=== PATIENT | female | born 1945 | race American Indian/Alaskan Native ===

== ENCOUNTER 2020-03-04 14:19 | Inpatient (IN) | payer MEDICARE ==
[2020-03-04] MEDS ORDERED: ACETAMINOPHEN 500 MG TAB PO STA (14:56)
[2020-03-04] MEDS ORDERED: SODIUM CHLORIDE 0.9% 500 ML 500 ML IV ONE (14:56)
--- NOTE | 2020-03-04 15:33 | XRay Report ---
XR chest 1V ap INDICATION / CLINICAL INFORMATION: CANDY COVID +. COMPARISON: None FINDINGS: SUPPORT DEVICES: None. HEART /PULMONARY VASCULATURE: No significant abnormality. LUNGS / PLEURA: Bilateral airspace opacities are present. No sizable pleural effusion. No pneumothora x. ADDITIONAL FINDINGS: No significant additional findings. IMPRESSION: Bilateral airspace disease, compatible with pneumonia. Findings are in keeping with reported history of COVID. Signer Name: Wes Deleon MD Signed: 03/04/2020 3:28 PM Workstation Name: [id number]
[2020-03-04 15:54] LABS: Basophils % (Auto) 0.4 % (0.0-1.8); Hematocrit 35.1 % (30.3-42.9); Hemoglobin 11.7 gm/dl (10.1-14.3); Lymphocytes # (Auto) 0.6 K/mm3 (1.2-5.4); Lymphocytes % (Auto) 11.1 % (13.4-35.0); Mean Corpuscular HGB Conc 34 % (30-34); Mean Corpuscular Volume 89 fl (79-97); Monocytes # (Auto) 0.3 K/mm3 (0.0-0.8); Monocytes % (Auto) 5.7 % (0.0-7.3); Platelet Count 169 K/mm3 (140-440); Red Blood Count 3.94 M/mm3 (3.65-5.03); Red Cell Distribution Width 14.9 % (13.2-15.2)
[2020-03-04 16:00] LABS: INR 1.06 (0.87-1.13)
[2020-03-04 16:01] LABS: Partial Thromboplastin Time 32.1 Sec. (24.2-36.6)
[2020-03-04 16:12] LABS: Alanine Aminotransferase 26 units/L (7-56); Albumin 3.3 g/dL (3.9-5); BUN/Creatinine Ratio 14; Blood Urea Nitrogen 17 mg/dL (7-17); Calcium 8.6 mg/dL (8.4-10.2); Hemolysis Index 4
[2020-03-04 16:13] LABS: Bilirubin,Direct < 0.2 mg/dL (0-0.2); C-Reactive Protein 11.3 mg/dL (0.00-1.30)
--- NOTE | 2020-03-04 16:23 | History and Physical Report ---
History of Present Illness Chief complaint: It is so hard for me to breathe History of present illness: 74 YO Female with Obesity Hypoventilation Syndrome, DM, HTN, Asthma presents to ED for evaluation. Patient states that she has experienced shortness of breath over the past 2 days with worsening symptoms over the past 1 day. Patient acknowledges fever to 103 F, malaise, weakness, fatigue, decreased exercise yobany erance. EMS was notified and upon arrival the patient was found to be in distress and subsequently transported to [facility] for further care and evaluation. Patient seen and evaluated in the emergency department. All lab and imaging studies reviewed. Patient was found to have a pulse oximetry of 86% on room air which is consistent with acute hypoxemic respiratory failure. The patient was nonresponsive to supplemental oxygen and was subsequently placed on high flow submental oxygen with improvement in pulse oximetry. Patient also found to have a chest x-ray which revealed bilateral pneumonia. Patient admitted to medical floor and initiated on pneumonia protocol as well as coronavirus protocol. Patient denies fever. Patient denies chills, chest pain, palpitations, skin rash, recent ill contacts. Patient acknowledges positive coronavirus test on 03/02/2020. No prior admission for review. No medication listed at time of admission for reconciliation. Advanced care planning conducted in the emergency department. Past History Past Medical History: diabetes, hypertension, other (See HPI) Past Surgical History: Other (Breast surgery) Social history: . denies: smoking, alcohol abuse Family history: diabetes, hypertension Medications and Allergies Allergies Allergy/AdvReac Type Severity Reaction Status Date / Time No Known Allergies Allergy Unverified 03/04/20 14:47 Review of Systems Constitutional: fever, fatigue, weakness, malaise Ears, nose, mouth and throat: no ear pain, no ear discharge, no tinnitis, no decreased hearing, no nose pain Breasts: no change in shape, no swelling Cardiovascular: no chest pain, no palpitations, no rapid/irregular heart beat, no edema, no syncope Respiratory: cough, shortness of breath, no hemoptysis, no pleurisy, no pain Gastrointestinal: no nausea, no vomiting, no diarrhea, no constipation Genitourinary Female: no pelvic pain, no flank pain, no dysuria, no urinary frequency, no urgency Rectal: no pain, no incontinence, no bleeding Musculoskeletal: no neck stiffness, no neck pain, no shooting arm pain, no arm numbness/tingling, no low back pain, no shooting leg pain Integumentary: no rash, no pruritis, no redness, no sores, no wounds Neurological: no transient paralysis, no paralysis, no weakness, no parathesias, no numbness Psychiatric: no anxiety, no memory loss, no change in sleep habits, no insomnia, no change in appetite, no change in libido, no suicidal ideation Endocrine: no cold intolerance, no heat intolerance, no polyphagia, no polydipsia, no polyuria, no excessive sweating, no low blood sugars, no fatigue Hematologic/Lymphatic: no easy bruising, no easy bleeding, no lymphadenopathy Allergic/Immunologic: no urticaria, no allergic rhinitis, no wheezing, no anaphylaxis Exam - Constitutional Vitals: Temp Pulse Resp BP Pulse Ox 103.1 F H 95 H 18 165/75 95 03/04/20 14:36 03/04/20 14:36 03/04/20 14:36 03/04/20 14:36 03/04/20 15:55 General appearance: Present: mild distress - EENT Eyes: Present: PERRL ENT: hearing intact, clear oral mucosa - Neck Neck: Present: supple, normal ROM - Respiratory Respiratory effort: labored, accessory muscle use, stridor Respiratory: bilateral: diminished, rhonchi - Cardiovascular Heart Sounds: Present: S1 & S2. Absent: rub, click - Extremities Extremities: pulses symmetrical, No edema Peripheral Pulses: within normal limits - Abdominal General gastrointestinal: Present: soft, non-tender, non-distended, normal bowel sounds Female genitourinary: Present: normal - Integumentary Integumentary: Present: clear, warm, dry - Musculoskeletal Musculoskeletal: gait normal, strength equal bilaterally - Psychiatric Psychiatric: appropriate mood/affect, intact judgment & insight - Neurologic Neurologic: CNII-XII intact, moves all extremities Results - Labs CBC & Chem 7: 03/04/20 15:07 03/04/20 15:07 Labs: Abnormal lab results 03/04/20 03/04/20 03/04/20 Range/Units 15:07 15:07 15:07 Lymph % (Auto) 11.1 L (13.4-35.0) % Lymph # (Auto) 0.6 L (1.2-5.4) K/mm3 Seg Neutrophils % 82.8 H (40.0-70.0) % D-Dimer 847.96 H (0-234) ng/mlDDU VBG pH 7.422 H (7.320-7.420) Sodium (137-145) mmol/L Glucose (65-100) mg/dL Ferritin (10.0-200.0) ng/mL AST (5-40) units/L Lactate Dehydrogenase (91-180) units/L C-Reactive Protein (0.00-1.30) mg/dL Albumin (3.9-5) g/dL 03/04/20 03/04/20 03/04/20 Range/Units 15:07 15:07 15:07 Lymph % (Auto) (13.4-35.0) % Lymph # (Auto) (1.2-5.4) K/mm3 Seg Neutrophils % (40.0-70.0) % D-Dimer (0-234) ng/mlDDU VBG pH (7.320-7.420) Sodium 134 L (137-145) mmol/L Glucose 208 H 206 H (65-100) mg/dL Ferritin 491.7 H (10.0-200.0) ng/mL AST 43 H (5-40) units/L Lactate Dehydrogenase 418 H 419 H (91-180) units/L C-Reactive Protein 11.90 H 11.30 H (0.00-1.30) mg/dL Albumin 3.3 L (3.9-5) g/dL Assessment and Plan - Patient Problems (1) Acute hypoxemic respiratory failure Current Visit: Yes Status: Acute Plan to address problem: Chest x-ray, CBC, pulse oximetry, nebulizer therapy, noninvasive positive pressure ventilation as clinically indicated. High flow submental oxygen at this time. Pulmonary toilet. Prone positioning while in bed. (2) COVID-19 virus infection Current Visit: Yes Status: Acute Plan to address problem: Coronavirus protocol: Isolation precautions, contact precautions, pulse oximetry, nebulizer therapy, IV antibiotic therapy, IV steroid therapy, prone positioning while in bed (3) Hypertension Current Visit: Yes Status: Acute Qualifiers: Hypertension type: essential hypertension Qualified Code(s): I10 - Essential (primary) hypertension Plan to address problem: Monitor blood pressure every shift, continue medical management (4) Obesity hypoventilation syndrome Current Visit: Yes Status: Acute Plan to address problem: Supplemental oxygen, pulse oximetry, outpatient pulmonary follow-up for sleep study, noninvasive positive pressure ventilation as clinically indicated. (5) Diabetes Current Visit: Yes Status: Acute Plan to address problem: Sliding scale insulin therapy, Accu-Chek, hypoglycemia protocol (6) Bilateral pneumonia Current Visit: Yes Status: Acute Qualifiers: Pneumonia type: due to unspecified organism Lung location: unspecified part of lung Qualified Code(s): J18.9 - Pneumonia, unspecified organism Plan to address problem: Pneumonia protocol: Chest x-ray, CBC, IV antibiotic therapy, nebulizer therapy, pulse oximetry, blood cultures. (7) DVT prophylaxis Current Visit: Yes Status: Acute Plan to address problem: SCD to bilateral lower extremities while in bed, prophylactic anticoagulation (8) Advance care planning Current Visit: Yes Status: Acute Plan to address problem: Disease education conducted, patient is full code, prognosis discussed, care plan discussed, patient acknowledges understanding and agreement with care plan, +30 minutes.
[2020-03-04] MEDS ORDERED: ONDANSETRON 4 MG/2 ML INJ IV PRN (16:24)
[2020-03-04] MEDS ORDERED: ACETAMINOPHEN 325 MG TAB PO PRN (16:24)
--- NOTE | 2020-03-04 17:11 | Emergency Department Report ---
ED General Adult HPI - General Chief complaint: Dyspnea/Respdistress Stated complaint: FEVER/SOB Time Seen by Provider: 03/04/20 14:55 Source: EMS Mode of arrival: Stretcher Limitations: No Limitations - History of Present Illness Initial comments: Is a 74-year old female who tested positive for Covid 19 on Thursday. The patient is not able to give me much of a history. She is noted to have a pulse oximetry of 94% on nasal cannula. I ordered high flow O2. Apparently, she has had a fever, 103 at triage. She has been short of breath. She complained of chest pain but not actively at the time of my encounter. -: Gradual, days(s) Location: chest Severity scale (0 -10): 0 Quality: other (Unable to describe) Consistency: other (Not currently active) Improves with: none Worsens with: none Associated Symptoms: denies other symptoms (Denies significant cough), shortness of breath - Related Data Allergies Allergy/AdvReac Type Severity Reaction Status Date / Time No Known Allergies Allergy Unverified 03/04/20 14:47 ED Review of Systems ROS: Stated complaint: FEVER/SOB Other details as noted in HPI Comment: Unobtainable due to pts medical conditions (Poorly able to communicate) ED Past Medical Hx - Past Medical History Hx Hypertension: Yes Hx Diabetes: Yes Hx Asthma: Yes - Surgical History Past Surgical History?: Yes Hx Breast Surgery: Yes (RIGHT) - Social History Smoking Status: Never Smoker Substance Use Type: None ED Physical Exam - General Limitations: Altered Mental Status, Physical Limitation General appearance: lethargic - Head Head exam: Present: atraumatic, normocephalic - Eye Eye exam: Present: normal appearance. Absent: scleral icterus - ENT ENT exam: Present: mucous membranes moist - Neck Neck exam: Present: normal inspection - Respiratory Respiratory exam: Present: rhonchi. Absent: normal lung sounds bilaterally, respiratory distress - Cardiovascular Cardiovascular Exam: Present: regular rate, normal rhythm. Absent: systolic murmur, diastolic murmur, rubs, gallop - GI/Abdominal GI/Abdominal exam: Present: soft, normal bowel sounds. Absent: distended, tenderness, guarding - Extremities Exam Extremities exam: Present: normal inspection - Back Exam Back exam: Present: normal inspection - Neurological Exam Neurological exam: Present: altered, CN II-XII intact (As testable). Absent: motor sensory deficit (No gross focal findings) - Psychiatric Psychiatric exam: Present: normal mood, flat affect - Skin Skin exam: Present: warm, dry, intact, normal color. Absent: rash ED Course Vital Signs 03/04/20 03/04/20 14:36 15:55 Temperature 103.1 F H Pulse Rate 95 H Respiratory 18 Rate Blood Pressure 165/75 O2 Sat by Pulse 92 95 Oximetry - Reevaluation(s) Reevaluation #1: Chest x-ray shows bilateral infiltrates consistent with pneumonia/COVID-19 infection. He is given a fluid bolus. She is placed on high flow O2. Antibiotics and steroids are ordered by the hospitalist Dr. Eduardo who was admitted the patient to his service. 03/04/20 17:10 ED Medical Decision Making - Lab Data Result diagrams: 03/04/20 15:07 03/04/20 15:07 Laboratory Results - last 24 hr 03/04/20 03/04/20 03/04/20 15:07 15:07 15:07 WBC 5.8 RBC 3.94 Hgb 11.7 Hct 35.1 MCV 89 MCH 30 MCHC 34 RDW 14.9 Plt Count 169 Lymph % (Auto) 11.1 L [place] % (Auto) 5.7 Eos % (Auto) 0.0 Baso % (Auto) 0.4 Lymph # (Auto) 0.6 L [place] # (Auto) 0.3 Eos # (Auto) 0.0 Baso # (Auto) 0.0 Seg Neutrophils % 82.8 H Seg Neutrophils # 4.8 PT 13.6 INR 1.06 APTT 32.1 D-Dimer 847.96 H VBG pH Sodium Potassium Chloride Carbon Dioxide Anion Gap BUN Creatinine Estimated GFR BUN/Creatinine Ratio Glucose Lactic Acid 1.20 Calcium Magnesium Ferritin Total Bilirubin Direct Bilirubin Indirect Bilirubin AST ALT Alkaline Phosphatase Lactate Dehydrogenase C-Reactive Protein NT-Pro-B Natriuret Pep Total Protein Albumin Albumin/Globulin Ratio 03/04/20 03/04/20 03/04/20 15:07 15:07 15:07 WBC RBC Hgb Hct MCV MCH MCHC RDW Plt Count Lymph % (Auto) [place] % (Auto) Eos % (Auto) Baso % (Auto) Lymph # (Auto) [place] # (Auto) Eos # (Auto) Baso # (Auto) Seg Neutrophils % Seg Neutrophils # PT INR APTT D-Dimer VBG pH 7.422 H Sodium 134 L Potassium 4.1 Chloride 101.6 Carbon Dioxide 24 Anion Gap 13 BUN 17 Creatinine 1.2 Estimated GFR 53 BUN/Creatinine Ratio 14 Glucose 208 H Lactic Acid Calcium 8.6 Magnesium 2.10 Ferritin 491.7 H Total Bilirubin 0.30 Direct Bilirubin < 0.2 Indirect Bilirubin 0.1 AST 43 H ALT 26 Alkaline Phosphatase 80 Lactate Dehydrogenase 418 H C-Reactive Protein 11.90 H NT-Pro-B Natriuret Pep 591.5 Total Protein 7.7 Albumin 3.3 L Albumin/Globulin Ratio 0.8 03/04/20 15:07 WBC RBC Hgb Hct MCV MCH MCHC RDW Plt Count Lymph % (Auto) [place] % (Auto) Eos % (Auto) Baso % (Auto) Lymph # (Auto) [place] # (Auto) Eos # (Auto) Baso # (Auto) Seg Neutrophils % Seg Neutrophils # PT INR APTT D-Dimer VBG pH Sodium Potassium Chloride Carbon Dioxide Anion Gap BUN Creatinine Estimated GFR BUN/Creatinine Ratio Glucose 206 H Lactic Acid Calcium Magnesium Ferritin Total Bilirubin Direct Bilirubin Indirect Bilirubin AST ALT Alkaline Phosphatase Lactate Dehydrogenase 419 H C-Reactive Protein 11.30 H NT-Pro-B Natriuret Pep Total Protein Albumin Albumin/Globulin Ratio - EKG Data -: EKG Interpreted by Tn EKG shows normal: sinus rhythm, axis, intervals, QRS complexes, ST-T waves Rate: normal - EKG Data Interpretation: other (Left atrial enlargement) - Radiology Data Radiology results: report reviewed, image reviewed Critical care attestation.: If time is entered above; I have spent that time in minutes in the direct care of this critically ill patient, excluding procedure time. ED Disposition Clinical Impression: COVID-19 virus infection, Hypoxia Bilateral pneumonia Qualifiers: Pneumonia type: due to unspecified organism Lung location: unspecified part of lung Qualified Code(s): J18.9 - Pneumonia, unspecified organism Disposition: -09 OP ADMIT IP TO THIS HOSP Is pt being admited?: Yes Does the pt Need Aspirin: Yes Condition: Stable Instructions: Bacterial Pneumonia (ED) Time of Disposition: 17:12
[2020-03-04] MEDS ORDERED: ASPIRIN 325 MG TAB PO ONE (17:12)
[2020-03-04] MEDS: methylPREDNISolone Sod Succinate 40 MG/1 ML INJ IV SCH (18:23)
[2020-03-04] MEDS: cefTRIAXone/NS 2 GM/100 ML 2 GM/100 ML BAG IV SCH (18:32)
[2020-03-04] MEDS: AZITHROMYCIN 500 MG in SODIUM CHLORIDE 0.9% 250ML 250 ML IV SCH (19:00)
[2020-03-04] MEDS: HEPARIN 5,000 UNIT/1 ML VIAL SUB-Q SCH (22:11)
[2020-03-05] MEDS: methylPREDNISolone Sod Succinate 40 MG/1 ML INJ IV SCH ×3 (00:32→17:21)
[2020-03-05] MEDS: HEPARIN 5,000 UNIT/1 ML VIAL SUB-Q SCH ×2 (10:15→21:09)
[2020-03-05] MEDS: cefTRIAXone/NS 2 GM/100 ML 2 GM/100 ML BAG IV SCH (17:21)
--- NOTE | 2020-03-05 18:02 | Progress Note ---
Assessment and Plan Assessment and plan: --COVID-19 virus infection/COVID-19 positive Current Visit: Yes Status: Acute Plan to address problem: Contact and droplet isolation Management per COVID-19 protocols IV steroids -- Acute hypoxemic respiratory failure Current Visit: Yes Status: Acute Plan to address problem: Oxygen titrate O2 sats to more than 90%, Prone position while resting Home oxygen evaluation at discharge --Hypertension Current Visit: Yes Status: Acute Plan to address problem: Monitor blood pressure every shift, continue medical management -- Obesity hypoventilation syndrome Current Visit: Yes Status: Acute Plan to address problem: Supplemental oxygen, pulse oximetry, outpatient pulmonary follow-up for sleep study, noninvasive positive pressure ventilation as clinically indicated. -- Diabetes Current Visit: Yes Status: Acute Plan to address problem: Sliding scale insulin therapy, Accu-Chek, hypoglycemia protocol --Bilateral pneumonia Current Visit: Yes Status: Acute Plan to address problem: Pneumonia protocol: Chest x-ray, CBC, IV antibiotic therapy, nebulizer therapy, pulse oximetry, blood cultures. -- DVT prophylaxis Current Visit: Yes Status: Acute Plan to address problem: SCD to bilateral lower extremities while in bed, prophylactic anticoagulation -- Advance care planning Current Visit: Yes Status: Acute Plan to address problem: Disease education conducted, patient is full code, prognosis discussed, care plan discussed, patient acknowledges understanding and agreement with care plan, +30 minutes. History Interval history: I have seen and examined the patient at the bedside this afternoon Patient's chart and medications reviewed Covid positive patient on isolation Vital signs noted Hospitalist Physical - Constitutional Vitals: Temp Pulse Resp BP Pulse Ox 98.5 F 77 18 148/76 98 03/05/20 11:26 03/05/20 11:26 03/05/20 11:26 03/05/20 11:26 03/05/20 14:44 General appearance: Present: mild distress, well-nourished, obese - EENT Eyes: Present: PERRL, EOM intact - Neck Neck: Present: supple, normal ROM - Respiratory Respiratory effort: normal Respiratory: bilateral: diminished, rhonchi, negative: rales, wheezing - Cardiovascular Rhythm: regular Heart Sounds: Present: S1 & S2 - Extremities Extremities: no ischemia, No edema - Abdominal General gastrointestinal: soft, non-tender, non-distended, normal bowel sounds - Integumentary Integumentary: Present: clear, warm - Psychiatric Psychiatric: appropriate mood/affect, cooperative - Neurologic Neurologic: moves all extremities Results - Labs CBC & Chem 7: 03/04/20 15:07 03/04/20 15:07 Labs: Laboratory Last Values WBC 5.8 K/mm3 (4.5-11.0) 03/04/20 15:07 RBC 3.94 M/mm3 (3.65-5.03) 03/04/20 15:07 Hgb 11.7 gm/dl (10.1-14.3) 03/04/20 15:07 Hct 35.1 % (30.3-42.9) 03/04/20 15:07 MCV 89 fl (79-97) 03/04/20 15:07 MCH 30 pg (28-32) 03/04/20 15:07 MCHC 34 % (30-34) 03/04/20 15:07 RDW 14.9 % (13.2-15.2) 03/04/20 15:07 Plt Count 169 K/mm3 (140-440) 03/04/20 15:07 Lymph % (Auto) 11.1 % (13.4-35.0) L 03/04/20 15:07 [place] % (Auto) 5.7 % (0.0-7.3) 03/04/20 15:07 Eos % (Auto) 0.0 % (0.0-4.3) 03/04/20 15:07 Baso % (Auto) 0.4 % (0.0-1.8) 03/04/20 15:07 Lymph # (Auto) 0.6 K/mm3 (1.2-5.4) L 03/04/20 15:07 [place] # (Auto) 0.3 K/mm3 (0.0-0.8) 03/04/20 15:07 Eos # (Auto) 0.0 K/mm3 (0.0-0.4) 03/04/20 15:07 Baso # (Auto) 0.0 K/mm3 (0.0-0.1) 03/04/20 15:07 Seg Neutrophils % 82.8 % (40.0-70.0) H 03/04/20 15:07 Seg Neutrophils # 4.8 K/mm3 (1.8-7.7) 03/04/20 15:07 PT 13.6 Sec. (12.2-14.9) 03/04/20 15:07 INR 1.06 (0.87-1.13) 03/04/20 15:07 APTT 32.1 Sec. (24.2-36.6) 03/04/20 15:07 D-Dimer 847.96 ng/mlDDU (0-234) H 03/04/20 15:07 VBG pH 7.422 (7.320-7.420) H 03/04/20 15:07 Sodium 134 mmol/L (137-145) L 03/04/20 15:07 Potassium 4.1 mmol/L (3.6-5.0) 03/04/20 15:07 Chloride 101.6 mmol/L (98-107) 03/04/20 15:07 Carbon Dioxide 24 mmol/L (22-30) 03/04/20 15:07 Anion Gap 13 mmol/L 03/04/20 15:07 BUN 17 mg/dL (7-17) 03/04/20 15:07 Creatinine 1.2 mg/dL (0.6-1.2) 03/04/20 15:07 Estimated GFR 53 ml/min 03/04/20 15:07 BUN/Creatinine Ratio 14 % 03/04/20 15:07 Glucose 206 mg/dL (65-100) H 03/04/20 15:07 Glucose 208 mg/dL (65-100) H 03/04/20 15:07 POC Glucose 292 mg/dL (70-105) H 03/04/20 21:53 Lactic Acid 0.80 mmol/L (0.7-2.0) 03/04/20 18:01 Calcium 8.6 mg/dL (8.4-10.2) 03/04/20 15:07 Magnesium 2.10 mg/dL (1.7-2.3) 03/04/20 15:07 Ferritin 491.7 ng/mL (10.0-200.0) H 03/04/20 15:07 Total Bilirubin 0.30 mg/dL (0.1-1.2) 03/04/20 15:07 Direct Bilirubin < 0.2 mg/dL (0-0.2) 03/04/20 15:07 Indirect Bilirubin 0.1 mg/dL 03/04/20 15:07 AST 43 units/L (5-40) H 03/04/20 15:07 ALT 26 units/L (7-56) 03/04/20 15:07 Alkaline Phosphatase 80 units/L (35-129) 03/04/20 15:07 Lactate Dehydrogenase 418 units/L (91-180) H 03/04/20 15:07 Lactate Dehydrogenase 419 units/L (91-180) H 03/04/20 15:07 C-Reactive Protein 11.30 mg/dL (0.00-1.30) H 03/04/20 15:07 C-Reactive Protein 11.90 mg/dL (0.00-1.30) H 03/04/20 15:07 NT-Pro-B Natriuret Pep 591.5 pg/mL (0-900) 03/04/20 15:07 Total Protein 7.7 g/dL (6.3-8.2) 03/04/20 15:07 Albumin 3.3 g/dL (3.9-5) L 03/04/20 15:07 Albumin/Globulin Ratio 0.8 % 03/04/20 15:07 Procalcitonin 0.34 ng/mL (<0.15) 03/04/20 15:07 Coronavirus (PCR) Positive (Negative) A 03/05/20 Unknown Microbiology: Microbiology 03/04/20 15:22 Peripheral/Venous Blood Culture - Preliminary NO GROWTH AFTER 24 HOURS 03/04/20 15:07 Peripheral/Venous Blood Culture - Preliminary NO GROWTH AFTER 24 HOURS Calderón/IV: Voiding Method Toilet IV Catheter Type [Right Hand] Peripheral IV Active Medications - Current Medications Current Medications: Generic Name Dose Route Start Last Admin Trade Name Freq PRN Reason Stop Dose Admin Acetaminophen 650 mg 03/04/20 16:24 Tylenol PO Q4H PRN Pain MILD(1-3)/Fever >100.5/BAEZ Azithromycin 500 mg 03/06/20 10:00 Zithromax PO 03/08/20 10:01 QDAY KASSI Heparin Sodium (Porcine) 5,000 unit 03/04/20 22:00 03/05/20 10:15 Heparin SUB-Q 5,000 unit Q12HR KASSI Administration Ceftriaxone Sodium 2 gm in 100 mls @ 200 mls/hr 03/04/20 17:00 03/05/20 17:21 Rocephin/Ns 2 Gm/100 Ml IV 200 mls/hr Q24H KASSI Administration Protocol Azithromycin 500 mg/ Sodium 250 mls @ 250 mls/hr 03/04/20 17:00 03/04/20 19:00 Chloride IV 03/05/20 23:00 250 mls/hr Q24H KASSI Administration Protocol Methylprednisolone Sodium Succinate 40 mg 03/04/20 17:00 03/05/20 17:21 Solu-Medrol IV 40 mg Q8H KASSI Administration Ondansetron HCl 4 mg 03/04/20 16:24 Zofran IV Q8H PRN Nausea And Vomiting Sodium Chloride 10 ml 03/04/20 22:00 03/05/20 10:16 Sodium Chloride Flush Syringe 10 Ml IV 10 ml BID KASSI Administration Sodium Chloride 10 ml 03/04/20 16:24 Sodium Chloride Flush Syringe 10 Ml IV PRN PRN LINE FLUSH Nutrition/Malnutrition Assess - Dietary Evaluation Nutrition/Malnutrition Findings: Nutrition Notes Start: 03/05/20 13:25 Freq: Status: Active Protocol: Document 03/05/20 13:25 NHALL (Rec: 03/05/20 13:31 NHALL [email or web address]) Nutrition Notes 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 She is currently on high-flow oxygen support. Burn Absent Trauma Absent Minimum of two criteria No #1 Nutrition Diagnosis Predicted suboptimal energy intake Etiology possible COVID-19 infection As Evidenced by Signs and Symptoms pt exhibiting symptoms of COVID-19 infection Is patient on ventilator? No Is Patient Ambulatory and/or Out of Bed Yes REE-(Cole-St. Jeor-ambulatory/OOB) [ 1900.275 [id number]] Kcal/Kg value to use for calculation 15 Approximate Energy Requirements Using 1425 kcal/Kg Calculation Used for Recommendations Kcal/kg Additional Notes Pro needs 1-1.2g/kg adjBW: 77- 92g/day Fluid needs 1ml/kcal Nutrition Intervention Change Diet Order: Continue current diet order Goal #1 PO intake of meals to meet at least 75% energy and pro needs Anticipated Discharge Needs: None identified at this time Follow-Up By: 03/07/20 Additional Comments F/U: intakes, need for ONS
[2020-03-05 20:31] LABS: Bacteria,Urine 4+ /HPF (Negative); Bilirubin,Urine NEG (Negative); Blood,Urine MOD (Negative); Color,Urine Yellow (Yellow); Mucus,Urine FEW /HPF; Urobilinogen,Urine < 2.0 mg/dL (<2.0)
[2020-03-05] MEDS: AZITHROMYCIN 500 MG in SODIUM CHLORIDE 0.9% 250ML 250 ML IV SCH (21:11)
[2020-03-05] MEDS: INSULIN LISPRO 100 UNIT/ML VIAL 3 mL SUB-Q SCH (23:53)
[2020-03-06] MEDS: methylPREDNISolone Sod Succinate 40 MG/1 ML INJ IV SCH ×2 (00:20→11:22)
[2020-03-06 04:58] VITALS: BP 158/83
[2020-03-06] MEDS: INSULIN LISPRO 100 UNIT/ML VIAL 3 mL SUB-Q SCH ×2 (08:21→12:17)
--- NOTE | 2020-03-06 09:27 | Progress Note ---
Assessment and Plan Assessment and plan: --COVID-19 virus infection/COVID-19 positive Current Visit: Yes Status: Acute Plan to address problem: Contact and droplet isolation Management per COVID-19 protocols IV steroids -- Acute hypoxemic respiratory failure Current Visit: Yes Status: Acute Plan to address problem: Oxygen titrate O2 sats to more than 90%, Prone position while resting Home oxygen evaluation at discharge --Hypertension Current Visit: Yes Status: Acute Plan to address problem: Monitor blood pressure every shift, continue medical management -- Obesity hypoventilation syndrome Current Visit: Yes Status: Acute Plan to address problem: Supplemental oxygen, pulse oximetry, outpatient pulmonary follow-up for sleep study, noninvasive positive pressure ventilation as clinically indicated. -- Diabetes Current Visit: Yes Status: Acute Plan to address problem: Sliding scale insulin therapy, Accu-Chek, hypoglycemia protocol --Bilateral pneumonia Current Visit: Yes Status: Acute Plan to address problem: Pneumonia protocol: Chest x-ray, CBC, IV antibiotic therapy, nebulizer therapy, pulse oximetry, blood cultures. -- DVT prophylaxis Current Visit: Yes Status: Acute Plan to address problem: SCD to bilateral lower extremities while in bed, prophylactic anticoagulation -- Advance care planning Current Visit: Yes Status: Acute Plan to address problem: Disease education conducted, patient is full code, prognosis discussed, care plan discussed, patient acknowledges understanding and agreement with care plan, +30 minutes. Hospitalist Physical - Constitutional Vitals: Temp Pulse Resp BP Pulse Ox 98.7 F 76 20 158/83 98 03/06/20 04:24 03/06/20 04:24 03/06/20 04:24 03/06/20 04:24 03/06/20 04:24 General appearance: Present: mild distress, well-nourished, obese Results - Labs CBC & Chem 7: 03/04/20 15:07 03/04/20 15:07 Labs: Laboratory Last Values WBC 5.8 K/mm3 (4.5-11.0) 03/04/20 15:07 RBC 3.94 M/mm3 (3.65-5.03) 03/04/20 15:07 Hgb 11.7 gm/dl (10.1-14.3) 03/04/20 15:07 Hct 35.1 % (30.3-42.9) 03/04/20 15:07 MCV 89 fl (79-97) 03/04/20 15:07 MCH 30 pg (28-32) 03/04/20 15:07 MCHC 34 % (30-34) 03/04/20 15:07 RDW 14.9 % (13.2-15.2) 03/04/20 15:07 Plt Count 169 K/mm3 (140-440) 03/04/20 15:07 Lymph % (Auto) 11.1 % (13.4-35.0) L 03/04/20 15:07 Gonzales % (Auto) 5.7 % (0.0-7.3) 03/04/20 15:07 Eos % (Auto) 0.0 % (0.0-4.3) 03/04/20 15:07 Baso % (Auto) 0.4 % (0.0-1.8) 03/04/20 15:07 Lymph # (Auto) 0.6 K/mm3 (1.2-5.4) L 03/04/20 15:07 Gonzales # (Auto) 0.3 K/mm3 (0.0-0.8) 03/04/20 15:07 Eos # (Auto) 0.0 K/mm3 (0.0-0.4) 03/04/20 15:07 Baso # (Auto) 0.0 K/mm3 (0.0-0.1) 03/04/20 15:07 Seg Neutrophils % 82.8 % (40.0-70.0) H 03/04/20 15:07 Seg Neutrophils # 4.8 K/mm3 (1.8-7.7) 03/04/20 15:07 PT 13.6 Sec. (12.2-14.9) 03/04/20 15:07 INR 1.06 (0.87-1.13) 03/04/20 15:07 APTT 32.1 Sec. (24.2-36.6) 03/04/20 15:07 D-Dimer 847.96 ng/mlDDU (0-234) H 03/04/20 15:07 VBG pH 7.422 (7.320-7.420) H 03/04/20 15:07 Sodium 134 mmol/L (137-145) L 03/04/20 15:07 Potassium 4.1 mmol/L (3.6-5.0) 03/04/20 15:07 Chloride 101.6 mmol/L (98-107) 03/04/20 15:07 Carbon Dioxide 24 mmol/L (22-30) 03/04/20 15:07 Anion Gap 13 mmol/L 03/04/20 15:07 BUN 17 mg/dL (7-17) 03/04/20 15:07 Creatinine 1.2 mg/dL (0.6-1.2) 03/04/20 15:07 Estimated GFR 53 ml/min 03/04/20 15:07 BUN/Creatinine Ratio 14 % 03/04/20 15:07 Glucose 206 mg/dL (65-100) H 03/04/20 15:07 Glucose 208 mg/dL (65-100) H 03/04/20 15:07 POC Glucose 298 mg/dL (70-105) H 03/06/20 07:35 Lactic Acid 0.80 mmol/L (0.7-2.0) 03/04/20 18:01 Calcium 8.6 mg/dL (8.4-10.2) 03/04/20 15:07 Magnesium 2.10 mg/dL (1.7-2.3) 03/04/20 15:07 Ferritin 491.7 ng/mL (10.0-200.0) H 03/04/20 15:07 Total Bilirubin 0.30 mg/dL (0.1-1.2) 03/04/20 15:07 Direct Bilirubin < 0.2 mg/dL (0-0.2) 03/04/20 15:07 Indirect Bilirubin 0.1 mg/dL 03/04/20 15:07 AST 43 units/L (5-40) H 03/04/20 15:07 ALT 26 units/L (7-56) 03/04/20 15:07 Alkaline Phosphatase 80 units/L (35-129) 03/04/20 15:07 Lactate Dehydrogenase 418 units/L (91-180) H 03/04/20 15:07 Lactate Dehydrogenase 419 units/L (91-180) H 03/04/20 15:07 C-Reactive Protein 11.30 mg/dL (0.00-1.30) H 03/04/20 15:07 C-Reactive Protein 11.90 mg/dL (0.00-1.30) H 03/04/20 15:07 NT-Pro-B Natriuret Pep 591.5 pg/mL (0-900) 03/04/20 15:07 Total Protein 7.7 g/dL (6.3-8.2) 03/04/20 15:07 Albumin 3.3 g/dL (3.9-5) L 03/04/20 15:07 Albumin/Globulin Ratio 0.8 % 03/04/20 15:07 Procalcitonin 0.34 ng/mL (<0.15) 03/04/20 15:07 Urine Color Yellow (Yellow) 03/05/20 Unknown Urine Turbidity Cloudy (Clear) 03/05/20 Unknown Urine pH 8.0 (5.0-7.0) H 03/05/20 Unknown Ur Specific Notrees 1.023 (1.003-1.030) 03/05/20 Unknown Urine Protein 100 mg/dl mg/dL (Negative) 03/05/20 Unknown Urine Glucose (UA) >=500 mg/dL (Negative) 03/05/20 Unknown Urine Ketones Neg mg/dL (Negative) 03/05/20 Unknown Urine Blood Mod (Negative) 03/05/20 Unknown Urine Nitrite Neg (Negative) 03/05/20 Unknown Urine Bilirubin Neg (Negative) 03/05/20 Unknown Urine Urobilinogen < 2.0 mg/dL (<2.0) 03/05/20 Unknown Ur Leukocyte Esterase Neg (Negative) 03/05/20 Unknown Urine WBC (Auto) 5.0 /HPF (0.0-6.0) 03/05/20 Unknown Urine RBC (Auto) 10.0 /HPF (0.0-6.0) 03/05/20 Unknown U Epithel Cells (Auto) 8.0 /HPF (0-13.0) 03/05/20 Unknown Urine Bacteria (Auto) 4+ /HPF (Negative) 03/05/20 Unknown Urine Mucus Few /HPF 03/05/20 Unknown Coronavirus (PCR) Positive (Negative) A 03/05/20 Unknown Microbiology: Microbiology 03/04/20 15:22 Peripheral/Venous Blood Culture - Preliminary NO GROWTH AFTER 24 HOURS 03/04/20 15:07 Peripheral/Venous Blood Culture - Preliminary NO GROWTH AFTER 24 HOURS Calderón/IV: Voiding Method Toilet IV Catheter Type [Right Hand] Peripheral IV Active Medications - Current Medications Current Medications: Generic Name Dose Route Start Last Admin Trade Name Freq PRN Reason Stop Dose Admin Acetaminophen 650 mg 03/04/20 16:24 03/05/20 22:12 Tylenol PO 650 mg Q4H PRN Administration Pain MILD(1-3)/Fever >100.5/BAEZ Azithromycin 500 mg 03/06/20 10:00 Zithromax PO 03/08/20 10:01 QDAY KASSI Heparin Sodium (Porcine) 5,000 unit 03/04/20 22:00 03/05/20 21:09 Heparin SUB-Q 5,000 unit Q12HR KASSI Administration Ceftriaxone Sodium 2 gm in 100 mls @ 200 mls/hr 03/04/20 17:00 03/05/20 17:21 Rocephin/Ns 2 Gm/100 Ml IV 200 mls/hr Q24H KASSI Administration Protocol Insulin Human Lispro 0 unit 03/06/20 07:30 03/06/20 08:21 Humalog SUB-Q 4 unit ACHS KASSI Administration Protocol Methylprednisolone Sodium Succinate 40 mg 03/04/20 17:00 03/06/20 00:20 Solu-Medrol IV 40 mg Q8H KASSI Administration Ondansetron HCl 4 mg 03/04/20 16:24 Zofran IV Q8H PRN Nausea And Vomiting Sodium Chloride 10 ml 03/04/20 22:00 03/05/20 21:10 Sodium Chloride Flush Syringe 10 Ml IV 10 ml BID KASSI Administration Sodium Chloride 10 ml 03/04/20 16:24 Sodium Chloride Flush Syringe 10 Ml IV PRN PRN LINE FLUSH Nutrition/Malnutrition Assess - Dietary Evaluation Nutrition/Malnutrition Findings: Nutrition Notes Start: 03/05/20 13:25 Freq: Status: Active Protocol: Document 03/05/20 13:25 SAL (Rec: 03/05/20 13:31 SAL [email or web address]) Nutrition Notes Need for Assessment generated from: director of managed care Initial or Follow up Assessment Current Diagnosis Diabetes,Hypertension, Respiratory Failure Other Pertinent Diagnosis Bilat pneu r/o COVID-19, asthma Current Diet Cardiac/Consistent CHO Labs/Tests Reviewed Pertinent Medications Solumedrol Height 5 ft 6 in Weight 95 kg [place] Body Weight (kg) 59.09 BMI 33.7 Weight Status Obese Subjective/Other Information Pt screened for skin risk ( Lonnie score: 18). She is currently on high-flow oxygen support. Burn Absent Trauma Absent Minimum of two criteria No #1 Nutrition Diagnosis Predicted suboptimal energy intake Etiology possible COVID-19 infection As Evidenced by Signs and Symptoms pt exhibiting symptoms of COVID-19 infection Is patient on ventilator? No Is Patient Ambulatory and/or Out of Bed Yes REE-([place]-St. Jeor-ambulatory/OOB) [ 1900.275 NUTR.MSJOOB] Kcal/Kg value to use for calculation 15 Approximate Energy Requirements Using 1425 kcal/Kg Calculation Used for Recommendations Kcal/kg Additional Notes Pro needs 1-1.2g/kg adjBW: 77- 92g/day Fluid needs 1ml/kcal Nutrition Intervention Change Diet Order: Continue current diet order Goal #1 PO intake of meals to meet at least 75% energy and pro needs Anticipated Discharge Needs: None identified at this time Follow-Up By: 03/07/20 Additional Comments F/U: intakes, need for ONS
--- NOTE | 2020-03-06 09:32 | Event Note ---
Date: 03/06/20 I called [place] [phone] and discussed with physician Dr[address] Castro patient's condition tests and reports treatment plan. Answered all her questions, she requested to continue the management in our hospital at this point
[2020-03-06] MEDS ORDERED: AZITHROMYCIN 250 MG TAB PO SCH (10:00)
[2020-03-06] MEDS: HEPARIN 5,000 UNIT/1 ML VIAL SUB-Q SCH (11:23)
[2020-03-06] MEDS ORDERED: REMDESIVIR 100 MG VIAL IV ONE (12:00)
[2020-03-06] MEDS ORDERED: SODIUM CHLORIDE 0.9% 50 ML IVPB IV SCH (12:00)
[2020-03-06] MEDS ORDERED: REMDESIVIR 200 MG in SODIUM CHLORIDE 0.9% 250ML 250 ML IV ONE (12:00)
--- NOTE | 2020-03-06 12:06 | Consultation ---
History of Present Illness - Reason for Consult Consult date: 03/06/20 - History of Present Illness 74-year-old female past medical history obesity, diabetes, hypertension, asthma presented to the hospital complaining of shortness of breath. She notes the symptoms began approximately 2 days prior to admission and were progressively worse over that timeframe. She also complains of associated fever, malaise, fatigue. EMS was called and she was found to be hypoxic to 86%. She did not respond to supplemental oxygen, and was transported to the hospital. Febrile on admission to 103.1, afebrile since then. Normal white count. Procalcitonin slightly elevated 0.34. Currently receiving ceftriaxone azithromycin, as well as remdesivir. Blood cultures currently pending. She is currently on 5 L nasal cannula. Covid positive. Reviewed: Chest x-ray: Bilateral airspace disease Review of Systems: Bold if positive, otherwise negative General: fevers, chills, rigors HEENT: visual disturbance, diplopia, eye pain Respiratory: cough, sputum, hemoptysis, shortness of breath Cardiovascular: chest pain, syncope Gastrointestinal: nausea, vomiting, diarrhea, abdominal pain Genitourinary: dysuria, hematuria, flank pain Musculoskeletal: neck pain, back pain, joint pain, edema Neurologic: headaches, seizures Hematologic: easy bruising or bleeding Endocrine: night sweats, acute weight loss Skin: rash, jaundice, redness Psychiatric: suicidal, homicidal ideation Past History Past Medical History: diabetes, hypertension, other (See HPI) Past Surgical History: Other (Breast surgery) Social history: . denies: smoking, alcohol abuse Family history: diabetes, hypertension Medications and Allergies Allergies Allergy/AdvReac Type Severity Reaction Status Date / Time No Known Allergies Allergy Unverified 03/04/20 14:47 Home Medications Medication Instructions Recorded Confirmed Last Taken Type Unobtainable 03/04/20 03/04/20 Unknown History Active Meds: Active Medications Acetaminophen (Tylenol) 650 mg PO Q4H PRN PRN Reason: Pain MILD(1-3)/Fever >100.5/BAEZ Last Admin: 03/05/20 22:12 Dose: 650 mg Documented by: Azithromycin (Zithromax) 500 mg PO QDAY KASSI Stop: 03/08/20 10:01 Last Admin: 03/06/20 11:22 Dose: 500 mg Documented by: Heparin Sodium (Porcine) (Heparin) 5,000 unit SUB-Q Q12HR [facility] Last Admin: 03/06/20 11:23 Dose: 5,000 unit Documented by: Ceftriaxone Sodium (Rocephin/Ns 2 Gm/100 Ml) 2 gm in 100 mls @ 200 mls/hr IV Q24H [facility]; Protocol Last Admin: 03/05/20 17:21 Dose: 200 mls/hr Documented by: REMDESIVIR 200 mg/ Sodium (Chloride) 250 mls @ 500 mls/hr IV ONCE ONE Stop: 03/06/20 12:29 REMDESIVIR 100 mg/ Sodium (Chloride) 250 mls @ 500 mls/hr IV Q24HR@2100 KASSI Stop: 03/10/20 21:29 Insulin Human Lispro (Humalog) 0 unit SUB-Q ACHS [facility]; Protocol Last Admin: 03/06/20 08:21 Dose: 4 unit Documented by: Methylprednisolone Sodium Succinate (Solu-Medrol) 40 mg IV Q8H [facility] Last Admin: 03/06/20 11:22 Dose: 40 mg Documented by: Ondansetron HCl (Zofran) 4 mg IV Q8H PRN PRN Reason: Nausea And Vomiting Sodium Chloride (Sodium Chloride Flush Syringe 10 Ml) 10 ml IV BID [facility] Last Admin: 03/06/20 11:23 Dose: 10 ml Documented by: Sodium Chloride (Sodium Chloride Flush Syringe 10 Ml) 10 ml IV PRN PRN PRN Reason: LINE FLUSH Sodium Chloride (Nacl 0.9%) 50 ml IV Q24HR@2100 KASSI Stop: 03/10/20 21:01 Physical Examination - Physical Exam Narrative exam: Physical exam deferred due to PPE conservation strategy. Please refer to primary team's note. - Constitutional Vitals: Vital Signs Temp Pulse Resp BP Pulse Ox 98.7 F 76 20 158/83 98 03/06/20 04:24 03/06/20 04:24 03/06/20 04:24 03/06/20 04:24 03/06/20 04:24 Temperature -Last 24 Hours Temperature 98.7 F Temperature 98.5 F Temperature 98.6 F Results - Labs CBC & Chem 7: 03/04/20 15:07 03/04/20 15:07 Labs: Abnormal lab results 03/05/20 03/05/20 03/05/20 Range/Units 21:31 Unknown Unknown POC Glucose 343 H (70-105) mg/dL Urine pH 8.0 H (5.0-7.0) Coronavirus (PCR) Positive A (Negative) 03/06/20 03/06/20 Range/Units 07:35 10:34 POC Glucose 298 H 314 H (70-105) mg/dL Urine pH (5.0-7.0) Coronavirus (PCR) (Negative) Assessment and Plan Cultures: Blood culture 03/04/2020 pending A/P: 74-year-old female past medical history obesity, diabetes, hypertension, asthma admitted with COVID-19 pneumonia #Acute hypoxemic respiratory failure: Likely secondary to COVID-19 infection. Currently on 5 L nasal cannula #Severe COVID-19 pneumonia: Patient presented with 2 days of symptoms. Agree with remdesivir. #Obesity: Associated with worse COVID-19 outcomes Recs: -Stop antibiotics as doubt acute bacterial superinfection. -Continue remdesivir complete 5 days. Monitor renal and hepatic function while receiving -Anticoagulation per primary -Proning as able -Steroids per primary recommend 10 days. -Obtain daily inflammatory markers - ferritin, Ddimer, CRP, LDH Thank you for the consult, we will continue to follow. Blayne Lopez MD [facility], [place], [facility] O: [phone] F: [phone]
--- NOTE | 2020-03-06 15:50 | Event Note ---
Date: 03/06/20 I called patient's daughter Gaviota at [phone] and discussed extensively patient's condition, test reports Treatment plan, consultants recommendation and prognosis, I also informed that patient wants to come home AGAINST MEDICAL ADVICE And she showed that she would talk to her mother Ms. Gagnon, and inquired whether she can bring some diapers and a walker for her to ambulate In the room. I directed her to call and discuss with patient's nurse Ms. Sims.
--- NOTE | 2020-03-06 18:43 | Discharge Summary ---
Providers - Providers Date of Admission: 03/04/20 16:42 Date of discharge: 03/06/20 Attending physician: CORRINA ESQUIVEL 03/05/20 19:01 Consult to Physician [CONS] Routine Comment: Consulting Provider: SERAFIN LUJAN Physician Instructions: Reason For Exam: COVID-19 positive patient Primary care physician: LEARNING TECHNOLOGIST Hospitalization Condition: Stable Hospital course: --COVID-19 virus infection/COVID-19 positive Current Visit: Yes Status: Acute Plan to address problem: Contact and droplet isolation Management per COVID-19 protocols IV steroids -- Acute hypoxemic respiratory failure Current Visit: Yes Status: Acute Plan to address problem: Oxygen titrate O2 sats to more than 90%, Prone position while resting Home oxygen evaluation at discharge --Hypertension Current Visit: Yes Status: Acute Plan to address problem: Monitor blood pressure every shift, continue medical management -- Obesity hypoventilation syndrome Current Visit: Yes Status: Acute Plan to address problem: Supplemental oxygen, pulse oximetry, outpatient pulmonary follow-up for sleep study, noninvasive positive pressure ventilation as clinically indicated. -- Diabetes Current Visit: Yes Status: Acute Plan to address problem: Sliding scale insulin therapy, Accu-Chek, hypoglycemia protocol --Bilateral pneumonia Current Visit: Yes Status: Acute Plan to address problem: Pneumonia protocol: Chest x-ray, CBC, IV antibiotic therapy, nebulizer therapy, pulse oximetry, blood cultures. -- DVT prophylaxis Current Visit: Yes Status: Acute Plan to address problem: SCD to bilateral lower extremities while in bed, prophylactic anticoagulation -- Advance care planning Current Visit: Yes Status: Acute Plan to address problem: Disease education conducted, patient is full code, prognosis discussed, care plan discussed, patient acknowledges understanding and agreement with care plan, +30 minutes. Disposition: DC-07 LEFT AGAINST MED ADVICE Time spent for discharge: 35 min Exam - Constitutional Vitals: Temp Pulse Resp BP Pulse Ox 98.7 F 76 20 158/83 92 03/06/20 04:24 03/06/20 04:24 03/06/20 04:24 03/06/20 04:24 03/06/20 13:00 Plan Follow up with: PRIMARY CAREMD [Primary Care Provider] - 7 Days
[2020-03-07] MEDS ORDERED: REMDESIVIR 100 MG in SODIUM CHLORIDE 0.9% 250ML 250 ML IV SCH (21:00)
== END 2020-03-06 17:00 | disposition left against medical advice (07) | DRG 177 ==
LOC: ED 14:19 → 3A 16:42
PROVIDERS: ADMIT Internal Medicine; ATTEND Internal Medicine
PROC: XW033E5 Introduction of Remdesivir Anti-infective into Peripheral Vein, Percutaneous Approach, New Technology Group 5 (ICD-10-PCS; principal; 2020-03-06)
DX: U07.1 COVID-19 (principal); J96.01 Acute respiratory failure with hypoxia; J12.89 Other viral pneumonia; E66.2 Morbid (severe) obesity with alveolar hypoventilation; I10 Essential (primary) hypertension; E11.9 Type 2 diabetes mellitus without complications; J45.909 Unspecified asthma, uncomplicated; Z63.5 Disruption of family by separation and divorce; Z83.3 Family history of diabetes mellitus; Z82.49 Family history of ischemic heart disease and other diseases of the circulatory system; Z68.33 Body mass index [BMI] 33.0-33.9, adult
CPT/HCPCS: 36415; 71045; 80048; 80076; 81001; 82140; 82728; 82805; 82947; 82962; 83615; 83735; 83880; 84145; 85025; 85379; 85610; 85730; 86140; 87040; 87086; 94760; 96365; 96375; G0378; J0456; J0696; J1644; J2920; J7040; J7050; U0003